=== PATIENT | male | born 1960 | race Caucasian/White ===

== ENCOUNTER → 2017-06-03 | Outpatient (CLI) | payer OTHER ==
[~2017-06-03] MED LIST: ALDACTONE25 M1 PO; ALLOPURINOL300 MG PO; AMITRIPTYLINE10 MG PO; AMITRIPTYLINE25 MG PO; ASPIRIN81 M1 PO; ATIVAN0.5 MG PO; CETIRIZINE10 MG PO; CLARITIN10 MG PO; COL-RITE100 M1 PO; COLACE100 MG PO; COLCRYS0.6 MG PO; COZAAR50 M1 PO; CYMBALTA60 MG PO; DICLOFENAC SOD75 MG PO; Duragesic 50 M50 MCG TD; EFFIENT10 M1 PO; GABAPENTIN600 MG PO; GLIPIZIDE XL2.5 M1 PO; HUMALOG100 U/ML SC; HYDROCODONE BIT1 T11 PO; IMDUR SA30 MG PO; INDOCIN25 MG PO; INDOCIN50 M2 RC; ISOSORBIDE MONO30 MG PO; LASIX40 MG PO; LEXAPRO10 MG PO; LIPITOR10 MG PO; LIPITOR80 MG PO; LOPRESSOR25 MG PO; METFORMIN1000 MG PO; METOPROLOL SUCC25 M2 PO; METOPROLOL SUCC50 M2 PO; METOPROLOL TAR100 M1 PO; MOTRIN800 MG; MOTRIN800 MG PO; NEURONTIN300 MG PO; OMEPRAZOLE40 MG PO; OXYCODONE HC20 MG/ML PO; OXYCODONE HCL5 M1 PO; OXYCODONE HCL5 MG PO; OXYCODONE HYDRO10 M2 PO; PERCOCET 325 MG1 TA2 PO; PRAVACHOL40 MG PO; PRILOSEC20 M1 PO; PRILOSEC40 MG PO; TRAD5TAB1 PO; TRAMADOL HCL50 MG; TYLENOL EXTRA500 M2 PO; TYLENOL325 M1 PO; WELLBUTRIN SR150 MG PO; ZOFRAN8 M1 PO; ZYLOPRIM300 MG PO; ZYRTEC10 MG PO
[2017-06-03 09:27] LABS: BASO # 0.1 10*3/uL (0.0-0.1); BASO % 1.3 % (0.0-1.0); EOS # 0.4 10*3/uL (0.0-0.4); EOS % 5.7 % (1.0-4.0); HEMATOCRIT 34.4 % (42.0-52.0); HEMOGLOBIN 10.1 g/dl (14.0-18.0); LYMPH # 1.9 10*3/uL (1.3-4.4); LYMPH % 26.5 % (27.0-41.0); MEAN CELL VOLUME 76.6 fl (80.0-94.0); MEAN CORPUSCULAR HGB 22.5 pg (27.0-31.0); MEAN CORPUSCULAR HGB CONC 29.4 g/dl (33.0-37.0); MEAN PLATELET VOLUME 9.8 fl (9.6-12.3); MONO # 0.5 10*3/uL (0.1-1.0); MONO % 7.3 % (3.0-9.0); NEUT # 4.1 10*3/uL (2.3-7.9); NEUT % 58.9 % (47.0-73.0); PLATELET COUNT AUTOMATED 211 10*3/uL (130-400); RED BLOOD COUNT 4.49 10*6/uL (4.50-5.90); RED CELL DISTRI WIDTH 18.3 % (0-14.5)
[2017-06-04 07:06] LABS: HEPATITIS B SURFACE AG Negative (Negative); HEPATITIS C VIRUS ANTIBODY <0.1 (0.0-0.9)
[2017-06-04 08:10] LABS: RHEUMATOID ARTHRITIS FACTOR 12.2 IU/mL (0.0-13.9)
[2017-06-05 13:04] LABS: ANTI-RNP ANTIBODIES 0.2 AI (0.0-0.9); ANTI-SMITH ANTIBODIES <0.2 AI (0.0-0.9)
[2017-06-05 22:04] LABS: CCP ANTIBODIES IGG/IGA 4 units (0-19)
== END | disposition home or self-care (01) ==
LOC: LAB 08:53
PROVIDERS: Physician Assistant
DX: M25.50 Pain in unspecified joint (principal)

== ENCOUNTER 2021-08-01 19:52 | Inpatient (IN) | payer OTHER ==
[~2021-08-01] VITALS: Ht 175.2 cm; Wt 81.6 kg
[2021-08-01 20:07] LABS: ABG BASE EXCESS -2.8 mmol/L (-2.0-2.0); ARTERIAL BLOOD GAS PH 7.433 (7.35-7.45); ARTERIAL BLOOD GAS PO2 58.5 (80-90)
[2021-08-01 20:08] VITALS: BP 117/62
[2021-08-01 20:26] LABS: BILIRUBIN Negative (Negative); BLOOD Negative (Negative); CLARITY Clear (Clear); COLOR Yellow (Yellow); GLUCOSE Negative (Negative); KETONE 1+ (Negative); LEUKO ESTERASE Negative (Negative); NITRITE Negative (Negative); SPECIFIC GRAVITY 1.025 (1.001-1.030)
[2021-08-01 20:34] LABS: BACTERIA 1+; EPITHELIAL CELLS 0-2; HYALINE CAST TNTC; URINE AMPHETAMINES < 1000 (1000ng/ml); URINE BARBITURATES < 200 (200ng/ml); URINE BENZODIAZEPINES > 200 (200ng/ml); URINE CANNABINOIDS (THC) < 50 (50ng/ml); URINE COCAINE < 300 (300ng/ml); URINE METHADONE < 300 (300ng/ml); URINE OPIATES > 300 (300ng/ml)
[2021-08-01 20:35] LABS: URINE PHENCYCLIDINE < 25 (25ng/ml)
[2021-08-01 20:45] LABS: BASO # 0.1 10*3/uL (0.0-0.1); BASO % 0.7 % (0.0-1.0); EOS % 0.1 % (1.0-4.0); HEMATOCRIT 43.3 % (42.0-52.0); LYMPH # 0.8 10*3/uL (1.3-4.4); LYMPH % 5.7 % (27.0-41.0); MEAN CELL VOLUME 84.4 fl (80.0-94.0); MEAN CORPUSCULAR HGB 26.3 pg (27.0-31.0); MEAN CORPUSCULAR HGB CONC 31.2 g/dl (33.0-37.0); MEAN PLATELET VOLUME 9.2 fl (9.6-12.3); MONO # 0.9 10*3/uL (0.1-1.0); MONO % 6.2 % (3.0-9.0); NEUT # 12.9 10*3/uL (2.3-7.9); NEUT % 86.8 % (47.0-73.0); PLATELET COUNT AUTOMATED 286 10*3/uL (130-400); RED BLOOD COUNT 5.13 10*6/uL (4.50-5.90); WHITE BLOOD COUNT 14.9 10*3/uL (4.8-10.8)
[2021-08-01 21:01] LABS: ALBUMIN 2.7 gm/dl (3.1-4.5); ALKALINE PHOSPHATASE 130 U/L (45-117); BUN 16 mg/dl (7-24); CHLORIDE 100 mmol/L (98-107); CREATININE 1.29 mg/dL (0.70-1.30); LIPASE 216 U/L (73-393); POTASSIUM 5.9 mmol/L (3.5-5.1); SGOT/AST 628 IU/L (3-35); SGPT/ALT 115 U/L (12-78); SODIUM 132 mmol/L (136-145); TOTAL PROTEIN 8.6 gm/dL (6.4-8.2)
[2021-08-01 21:02] LABS: ETHYL ALCOHOL < 3.0 mg/dl (<3); TROPONIN I < 0.015 ng/ml (<0.045)
[2021-08-01 21:16] VITALS: BP 127/97
[2021-08-01 23:01] LABS: CPK 41540 U/L (39-308)
[2021-08-02] VITALS (16 sets, daily range): BP systolic 106–146; BP diastolic 62–92
[2021-08-02] MEDS ORDERED: GABAPENTIN800 MG PO (02:31)
[2021-08-02] MEDS ORDERED: CETIRIZINE HYDR10 MG PO (02:32)
[2021-08-02] MEDS ORDERED: MECLIZINE HCL25 M2 PO (02:32)
[2021-08-02] MEDS ORDERED: BUDESONIDE-FO10.2 G1 INH (02:34)
[2021-08-02] MEDS ORDERED: ATORVASTATIN CA80 M1 PO (02:35)
[2021-08-02] MEDS ORDERED: OXYCODONE-ACET1 EACH PO (02:36)
[2021-08-02] MEDS ORDERED: ALLOPURINOL300 MG PO (02:36)
[2021-08-02] MEDS ORDERED: VERAPAMIL HCL40 MG PO (02:39)
[2021-08-02 06:25] LABS: BASO # 0.1 10*3/uL (0.0-0.1); BASO % 0.4 % (0.0-1.0); HEMATOCRIT 44.5 % (42.0-52.0); LYMPH # 0.9 10*3/uL (1.3-4.4); LYMPH % 5.4 % (27.0-41.0); MEAN CELL VOLUME 83.8 fl (80.0-94.0); MEAN CORPUSCULAR HGB 25.8 pg (27.0-31.0); MEAN CORPUSCULAR HGB CONC 30.8 g/dl (33.0-37.0); MEAN PLATELET VOLUME 9.8 fl (9.6-12.3); MONO # 1.3 10*3/uL (0.1-1.0); MONO % 7.9 % (3.0-9.0); NEUT # 14.5 10*3/uL (2.3-7.9); NEUT % 85.9 % (47.0-73.0); PLATELET COUNT AUTOMATED 266 10*3/uL (130-400); RED BLOOD COUNT 5.31 10*6/uL (4.50-5.90); RED CELL DISTRI WIDTH 14.5 % (0-14.5); WHITE BLOOD COUNT 16.9 10*3/uL (4.8-10.8)
[2021-08-02 06:44] LABS: ALBUMIN 2.2 gm/dl (3.1-4.5); CREATININE 1.65 mg/dL (0.70-1.30); TOTAL PROTEIN 7.3 gm/dL (6.4-8.2)
[2021-08-02 07:07] LABS: POTASSIUM 4.9 mmol/L (3.5-5.1)
[2021-08-02 07:13] LABS: THYROID STIM HORMONE (HS) 1.72 uIU/ml (0.358-4.75)
[2021-08-02] MEDS ORDERED: OMEPRAZOLE40 MG PO (09:35)
[2021-08-02] MEDS ORDERED: TYLENOL EXTRA500 MG PO (09:38)
[2021-08-02 16:23] LABS: CREATININE 2.48 mg/dL (0.70-1.30); TOTAL PROTEIN 7.2 gm/dL (6.4-8.2)
[2021-08-02 16:25] LABS: POTASSIUM 5.5 mmol/L (3.5-5.1)
[2021-08-03] VITALS (48 sets, daily range): BP systolic 95–134; BP diastolic 53–106
[2021-08-03 05:30] LABS: ALBUMIN 1.7 gm/dl (3.1-4.5); CREATININE 2.97 mg/dL (0.70-1.30); TOTAL PROTEIN 6.5 gm/dL (6.4-8.2)
[2021-08-03 05:37] LABS: POTASSIUM 4.4 mmol/L (3.5-5.1)
[2021-08-03 08:59] LABS: HEMATOCRIT 39.9 % (42.0-52.0); MEAN CELL VOLUME 83.8 fl (80.0-94.0); MEAN CORPUSCULAR HGB 25.8 pg (27.0-31.0); MEAN CORPUSCULAR HGB CONC 30.8 g/dl (33.0-37.0); MEAN PLATELET VOLUME 11.2 fl (9.6-12.3); PLATELET COUNT AUTOMATED 193 10*3/uL (130-400); RED BLOOD COUNT 4.76 10*6/uL (4.50-5.90); RED CELL DISTRI WIDTH 14.9 % (0-14.5); WHITE BLOOD COUNT 23.3 10*3/uL (4.8-10.8)
[2021-08-03 09:12] LABS: ARTERIAL BLOOD GAS PH 7.335 (7.35-7.45); ARTERIAL BLOOD GAS PO2 73.6 (80-90)
[2021-08-03 09:42] LABS: OVALOCYTES FEW; PLATELET SUFFICIENCY NORMAL (NORMAL); TOTAL CELLS COUNTED 100 #CELLS; TOXIC GRANULATION SLIGHT
[2021-08-03 12:05] LABS: ABG BASE EXCESS -3.9 mmol/L (-2.0-2.0); ARTERIAL BLOOD GAS PO2 153.9 (80-90)
[2021-08-03 12:09] LABS: ARTERIAL BLOOD GAS PH 7.07 (7.35-7.45)
[2021-08-03 14:42] LABS: CREATININE 3.62 mg/dL (0.70-1.30); POTASSIUM 4.6 mmol/L (3.5-5.1)
[2021-08-03 15:10] LABS: ARTERIAL BLOOD GAS PO2 95.1 (80-90)
[2021-08-03 15:12] LABS: ARTERIAL BLOOD GAS PH 7.196 (7.35-7.45)
[2021-08-03 18:20] LABS: HEMATOCRIT 35.8 % (42.0-52.0); MEAN CORPUSCULAR HGB 26.2 pg (27.0-31.0); MEAN CORPUSCULAR HGB CONC 29.9 g/dl (33.0-37.0); MEAN PLATELET VOLUME 10.2 fl (9.6-12.3); PLATELET COUNT AUTOMATED 190 10*3/uL (130-400); RED BLOOD COUNT 4.09 10*6/uL (4.50-5.90); RED CELL DISTRI WIDTH 14.5 % (0-14.5)
[2021-08-03 18:31] LABS: CREATININE 3.72 mg/dL (0.70-1.30); POTASSIUM 4.8 mmol/L (3.5-5.1)
[2021-08-03 18:38] LABS: MEAN CELL VOLUME 87.5 fl (80.0-94.0)
[2021-08-03 18:52] LABS: PLATELET SUFFICIENCY NORMAL (NORMAL); TOTAL CELLS COUNTED 100 #CELLS
[2021-08-03 18:53] LABS: BURR CELLS FEW
[2021-08-03 19:58] LABS: ABG BASE EXCESS 3.5 mmol/L (-2.0-2.0); ARTERIAL BLOOD GAS PH 7.221 (7.35-7.45); ARTERIAL BLOOD GAS PO2 92.5 (80-90)
[2021-08-04] VITALS (96 sets, daily range): BP systolic 93–145; BP diastolic 50–75
[2021-08-04 04:02] LABS: ABG BASE EXCESS 7.2 mmol/L (-2.0-2.0); ARTERIAL BLOOD GAS PH 7.349 (7.35-7.45); ARTERIAL BLOOD GAS PO2 98.4 (80-90)
[2021-08-04 05:37] LABS: ALBUMIN 1.5 gm/dl (3.1-4.5); CREATININE 3.96 mg/dL (0.70-1.30); POTASSIUM 4.1 mmol/L (3.5-5.1); TOTAL PROTEIN 5.8 gm/dL (6.4-8.2)
[2021-08-04 06:17] LABS: MEAN CELL VOLUME 86.4 fl (80.0-94.0); MEAN CORPUSCULAR HGB 25.9 pg (27.0-31.0); MEAN PLATELET VOLUME 10.1 fl (9.6-12.3); PLATELET COUNT AUTOMATED 178 10*3/uL (130-400); RED BLOOD COUNT 3.59 10*6/uL (4.50-5.90); RED CELL DISTRI WIDTH 14.5 % (0-14.5); WHITE BLOOD COUNT 25.2 10*3/uL (4.8-10.8)
[2021-08-04 07:04] LABS: OVALOCYTES FEW; PLATELET SUFFICIENCY NORMAL (NORMAL); TOTAL CELLS COUNTED 100 #CELLS
[2021-08-04 07:05] LABS: TOXIC GRANULATION SLIGHT
[2021-08-04 08:55] LABS: ABG BASE EXCESS 8.4 mmol/L (-2.0-2.0); ARTERIAL BLOOD GAS PH 7.376 (7.35-7.45); ARTERIAL BLOOD GAS PO2 112.5 (80-90)
[2021-08-04 19:38] LABS: ABG BASE EXCESS 9.2 mmol/L (-2.0-2.0); ARTERIAL BLOOD GAS PH 7.475 (7.35-7.45); ARTERIAL BLOOD GAS PO2 103.9 (80-90)
[2021-08-05] VITALS (29 sets, daily range): BP systolic 90–143; BP diastolic 51–65
[2021-08-05 06:14] LABS: ALBUMIN 1.3 gm/dl (3.1-4.5); CREATININE 4.84 mg/dL (0.70-1.30); POTASSIUM 3.4 mmol/L (3.5-5.1); TOTAL PROTEIN 5.4 gm/dL (6.4-8.2)
[2021-08-05 06:47] LABS: HEMATOCRIT 24.6 % (42.0-52.0); MEAN CELL VOLUME 83.4 fl (80.0-94.0); MEAN CORPUSCULAR HGB 26.1 pg (27.0-31.0); MEAN CORPUSCULAR HGB CONC 31.3 g/dl (33.0-37.0); MEAN PLATELET VOLUME 10.8 fl (9.6-12.3); NUCLEATED RED BLOOD CELL 0.2 % (0.0-0.0); PLATELET COUNT AUTOMATED 135 10*3/uL (130-400); RED BLOOD COUNT 2.95 10*6/uL (4.50-5.90); RED CELL DISTRI WIDTH 14.8 % (0-14.5); WHITE BLOOD COUNT 17.9 10*3/uL (4.8-10.8)
[2021-08-05 07:17] LABS: BASOPHILS 1 % (0-1); BURR CELLS FEW; OVALOCYTES FEW; PLATELET SUFFICIENCY NORMAL (NORMAL); TOTAL CELLS COUNTED 100 #CELLS
[2021-08-05 07:18] LABS: TOXIC GRANULATION SLIGHT
[2021-08-05 07:38] LABS: ABG BASE EXCESS 7.5 mmol/L (-2.0-2.0); ARTERIAL BLOOD GAS PH 7.47 (7.35-7.45); ARTERIAL BLOOD GAS PO2 114.3 (80-90)
== END 2021-08-05 14:38 | disposition short-term general hospital (02) | DRG 812 ==
LOC: ED 19:52 → ICCU 08-02 00:11 → EDHOLD 08-02 00:11 → ICCU 08-02 08:29
PROVIDERS: Emergency Medicine; Internal Medicine; Internal Medicine Critical Care Medicine; Internal Medicine Nephrology; Student in an Organized Health Care Education/Training Program; Surgery; ADMIT Family Medicine; ATTEND Family Medicine
PROC: 5A09357 Assistance with Respiratory Ventilation, Less than 24 Consecutive Hours, Continuous Positive Airway Pressure (ICD-10-PCS; 2021-08-01)
PROC: 0BH18EZ Insertion of Endotracheal Airway into Trachea, Via Natural or Artificial Opening Endoscopic (ICD-10-PCS; principal; 2021-08-03)
PROC: 5A1945Z Respiratory Ventilation, 24-96 Consecutive Hours (ICD-10-PCS; 2021-08-03)
PROC: 02HV33Z Insertion of Infusion Device into Superior Vena Cava, Percutaneous Approach (ICD-10-PCS; 2021-08-03)
PROC: B548ZZA Ultrasonography of Superior Vena Cava, Guidance (ICD-10-PCS; 2021-08-03)
PROC: 03HB33Z Insertion of Infusion Device into Right Radial Artery, Percutaneous Approach (ICD-10-PCS; 2021-08-03)
PROC: B34HZZZ Ultrasonography of Right Upper Extremity Arteries (ICD-10-PCS; 2021-08-03)
DX: T42.4X4A Poisoning by benzodiazepines, undetermined, initial encounter (principal); A41.9 Sepsis, unspecified organism; M62.82 Rhabdomyolysis; T68.XXXA Hypothermia, initial encounter; E87.2 Acidosis; E87.1 Hypo-osmolality and hyponatremia; E44.0 Moderate protein-calorie malnutrition; Z20.822 Contact with and (suspected) exposure to COVID-19; Z68.26 Body mass index [BMI] 26.0-26.9, adult; J96.00 Acute respiratory failure, unspecified whether with hypoxia or hypercapnia; J15.6 Pneumonia due to other Gram-negative bacteria; R65.20 Severe sepsis without septic shock; E87.5 Hyperkalemia; E83.41 Hypermagnesemia; R73.9 Hyperglycemia, unspecified; I25.10 Atherosclerotic heart disease of native coronary artery without angina pectoris; F32.A Depression, unspecified; M1A.9XX0 Chronic gout, unspecified, without tophus (tophi); J18.9 Pneumonia, unspecified organism; G93.41 Metabolic encephalopathy; K92.2 Gastrointestinal hemorrhage, unspecified; D64.9 Anemia, unspecified; R04.2 Hemoptysis; Z79.1 Long term (current) use of non-steroidal anti-inflammatories (NSAID); Z79.899 Other long term (current) drug therapy; Y92.89 Other specified places as the place of occurrence of the external cause